=== PATIENT | female | born 1995 | race African-American/Black ===

== ENCOUNTER 2021-08-28 19:50 | Emergency (ER) | payer MEDICAID ==
[~2021-08-28] VITALS: Ht 172.7 cm; Wt 72.0 kg
[2021-08-29] MEDS ORDERED: PROPOFOL 200MG/20ML VIAL IV ONE (00:45)
[2021-08-29] MEDS ORDERED: HYDROCODONE/ACETAMINOPHEN 5/325MG TABLET PO STA (02:43)
[2021-08-29] MEDS ORDERED: IBUP-2030 MT (04:34)
[2021-08-29] MEDS ORDERED: HYDR-4001 MT (04:34)
[2021-08-29 05:33] VITALS: BP 124/73
== END 2021-08-29 05:34 | disposition home or self-care (01) ==
LOC: ER 19:50
DX: S52.122A Displaced fracture of head of left radius, initial encounter for closed fracture (principal); M25.532 Pain in left wrist; M79.622 Pain in left upper arm; W17.89XA Other fall from one level to another, initial encounter; Y93.89 Activity, other specified; Y92.018 Other place in single-family (private) house as the place of occurrence of the external cause
CPT/HCPCS: 24600; 73060; 73070; 73080; 73090; 73110; 99152; 99285; J2704

== ENCOUNTER 2021-09-24 20:50 | Emergency (ER) | payer MEDICAID ==
[~2021-09-24] VITALS: Ht 170.2 cm; Wt 71.0 kg
[~2021-09-24 20:50] MED LIST: HYDR-4001 MT; IBUP-2030 MT
[2021-09-24 22:12] LABS: CHLORIDE 107 mEq/L (98-107)
[2021-09-24 22:18] LABS: BASOPHILS % 0.5 % (0.0-2.0); EOSINOPHILS % 1.8 % (0.0-5.0); HEMATOCRIT. 29.5 % (36.0-48.0); HEMOGLOBIN. 9.5 g/dL (12.0-16.0); LYMPHOCYTES % 28.4 % (20.0-50.0); MEAN CORPUSCULAR HEMOGLOBIN 22.1 pg (28.0-32.0); MEAN CORPUSCULAR VOLUME 68.6 fL (81.0-99.0); MEAN PLATELET VOLUME 6.9 fl (7.4-10.4); MONOCYTES % 8.3 % (2.0-8.0); PLATELET 440 x1000/uL (130-400); RED CELL DISTRIBUTION WIDTH 21.1 % (11.6-14.6)
[2021-09-24 22:20] LABS: HCG SCREEN NEGATIVE
[2021-09-24 22:26] LABS: PLATELET ESTIMATE INCREASED
[2021-09-24 23:46] LABS: CLARITY URINE CLEAR (CLEAR); COLOR URINE YELLOW (YELLOW); KETONES URINE TRACE (NEGATIVE); LEUKOCYTE ESTERASE URINE NEGATIVE (NEGATIVE); NITRITE URINE NEGATIVE (NEGATIVE); OCCULT BLOOD URINE NEGATIVE (NEGATIVE); PH URINE 5.5 (4.5-8.0); PROTEIN URINE NEGATIVE (NEGATIVE); SPECIFIC GRAVITY URINE 1.037 (1.005-1.030)
[2021-09-25] MEDS ORDERED: MAGNESIUM/ALUMINUM HYDROXIDE/SIMETHICONE 30ML UDC PO ONE
[2021-09-25 00:04] LABS: *AMPHETAMINES SCREEN URINE NEGATIVE (NEGATIVE); *BARBITURATES SCREEN URINE NEGATIVE (NEGATIVE); *BENZODIAZEPINES SCREEN URINE NEGATIVE (NEGATIVE); *COCAINE SCREEN URINE NEGATIVE (NEGATIVE); CANNABINOID URINE SCREEN NEGATIVE (NEGATIVE); METHADONE URINE SCREEN NEGATIVE (NEGATIVE); OPIATES URINE SCREEN NEGATIVE (NEGATIVE); PHENCYCLIDINE URINE SCREEN NEGATIVE (NEGATIVE)
[2021-09-25] MEDS ORDERED: MAGNESIUM/ALUMINUM HYDROXIDE/SIMETHICONE 30ML UDC PO NR (00:25)
[2021-09-25] MEDS ORDERED: OMEP20CA14 MT (00:37)
[2021-09-25] MEDS ORDERED: DOCU-150 MT (00:37)
[2021-09-25] MEDS ORDERED: BISA10SU62 RC (00:37)
[2021-09-25 00:50] VITALS: BP 115/70
== END 2021-09-25 00:55 | disposition home or self-care (01) ==
LOC: ER 20:50
DX: K59.00 Constipation, unspecified (principal); D64.9 Anemia, unspecified; Z87.81 Personal history of (healed) traumatic fracture; Z79.899 Other long term (current) drug therapy
CPT/HCPCS: 36415; 80053; 80305; 81003; 81025; 84703; 85025; 99283

== ENCOUNTER 2022-03-20 19:03 | Emergency (ER) | payer SELFPAY ==
[~2022-03-20] VITALS: Ht 167.6 cm; Wt 64.0 kg
[~2022-03-20 19:03] MED LIST changes: +BISA10SU62 RC; +DOCU-150 MT; +OMEP20CA14 MT
[2022-03-20 19:12] VITALS: BP 121/77
== END 2022-03-20 22:39 | disposition home or self-care (01) ==
LOC: ER 19:03
DX: R07.89 Other chest pain (principal)
CPT/HCPCS: 71045; 81025; 99283

== ENCOUNTER 2022-10-07 17:34 | Emergency (ER) | payer SELFPAY ==
[~2022-10-07] VITALS: Ht 170.2 cm; Wt 88.6 kg
[2022-10-07 17:50] VITALS: BP 125/77
[2022-10-07] MEDS ORDERED: CIPHCO RIGHT EAR (22:49)
== END 2022-10-07 23:00 | disposition home or self-care (01) ==
LOC: ER 17:34
DX: H60.92 Unspecified otitis externa, left ear (principal)
CPT/HCPCS: 99283